=== PATIENT | male | born 1955 | race Caucasian/White ===

== ENCOUNTER 2023-09-16 13:05 | Emergency (ER) | payer SELFPAY ==
[~2023-09-16] VITALS: Ht 152.4 cm; Wt 52.2 kg
[2023-09-16 13:05] VITALS: BP_SYST 152; PULSE 78; RESP 18; TEMP 98.3; O2SAT 98
[2023-09-16] MEDS ORDERED: LIDOCAINE/EPI 1% 1:100000 20 ML VIAL ONE (13:13)
[2023-09-16] MEDS ORDERED: CEPH-548 PO (14:18)
[2023-09-16] MEDS ORDERED: HYDR-3917 PO (14:18)
[2023-09-16] MEDS: DIPHTH,PERTUSS(ACELL),TET VAC 0.5 ML VIAL (Tdap) I.M. ONE (14:44)
[2023-09-16] MEDS: BACITRACIN 1 GM OINT TP ONE (14:45)
[2023-09-16] MEDS: ceFAZolin SODIUM 2 GM VIAL IM ONE (14:45)
[2023-09-16 14:55] VITALS: BP_SYST 132; PULSE 68; RESP 18; TEMP 98.3; O2SAT 98
== END 2023-09-16 14:55 | disposition home or self-care (01) ==
LOC: EDBD → SED 13:05
DX: S81.811A Laceration without foreign body, right lower leg, initial encounter (principal); Z23 Encounter for immunization; Z79.2 Long term (current) use of antibiotics; Z79.899 Other long term (current) drug therapy; W27.0XXA Contact with workbench tool, initial encounter; Y93.89 Activity, other specified; Y92.89 Other specified places as the place of occurrence of the external cause; Y99.8 Other external cause status
CPT/HCPCS: 90715; 96372; 99284

== ENCOUNTER 2023-09-20 10:26 | Emergency (ER) | payer MEDICAID ==
[~2023-09-20] VITALS: Ht 162.6 cm; Wt 65.8 kg
[~2023-09-20 10:26] MED LIST: CEPH-548 PO; HYDR-3917 PO
[2023-09-20 10:34] VITALS: BP_SYST 134; PULSE 68; RESP 15; TEMP 97.9; O2SAT 98
[2023-09-20] MEDS ORDERED: BACITRACIN 1 GM OINT TP ONE ×2 (11:13→11:15)
[2023-09-20 11:18] VITALS: BP_SYST 134; PULSE 68; RESP 15; TEMP 97.9; O2SAT 98
== END 2023-09-20 11:24 | disposition home or self-care (01) ==
LOC: SED 10:26
DX: S81.811D Laceration without foreign body, right lower leg, subsequent encounter (principal); R20.0 Anesthesia of skin; Z79.899 Other long term (current) drug therapy; Z79.2 Long term (current) use of antibiotics; W29.3XXD Contact with powered garden and outdoor hand tools and machinery, subsequent encounter
CPT/HCPCS: 99282

== ENCOUNTER 2023-09-25 13:27 | Emergency (ER) | payer MEDICAID ==
[~2023-09-25] VITALS: Ht 162.6 cm; Wt 65.8 kg
[2023-09-25 13:31] VITALS: BP_SYST 144; PULSE 60; RESP 18; TEMP 98.2; O2SAT 98
[2023-09-25] MEDS ORDERED: BACITRACIN 1 GM OINT TP ONE (14:22)
[2023-09-25 14:23] VITALS: BP_SYST 144; PULSE 60; RESP 18; TEMP 98.2; O2SAT 98
== END 2023-09-25 14:23 | disposition home or self-care (01) ==
LOC: EDBD → SED 13:27
DX: S91.011D Laceration without foreign body, right ankle, subsequent encounter (principal); R20.0 Anesthesia of skin; Z79.899 Other long term (current) drug therapy; Z79.2 Long term (current) use of antibiotics; W29.3XXD Contact with powered garden and outdoor hand tools and machinery, subsequent encounter
CPT/HCPCS: 99281

== ENCOUNTER 2023-09-30 08:44 | Emergency (ER) | payer MEDICAID ==
[~2023-09-30] VITALS: Ht 157.5 cm; Wt 63.5 kg
[2023-09-30 09:44] VITALS: BP_SYST 129; PULSE 85; RESP 16; TEMP 97.5; O2SAT 97
[2023-09-30] MEDS ORDERED: CLIN-142 PO (10:03)
[2023-09-30] MEDS ORDERED: BACITRACIN 1 GM OINT TP ONE (10:07)
[2023-09-30] MEDS: BACITRACIN 1 GM OINT TP ONE (10:19)
[2023-09-30 10:21] VITALS: BP_SYST 129; PULSE 85; RESP 16; TEMP 97.5; O2SAT 97
== END 2023-09-30 10:20 | disposition home or self-care (01) ==
LOC: SED 08:44
DX: S81.811D Laceration without foreign body, right lower leg, subsequent encounter (principal); X58.XXXD Exposure to other specified factors, subsequent encounter
CPT/HCPCS: 99283